=== PATIENT | female | born 1995 | race Native Hawaiian/Other Pacific Islander ===

== ENCOUNTER 2022-07-02 16:36 | Emergency (ER) | payer OTHER ==
[~2022-07-02] VITALS: Ht 160 cm; Wt 88.9 kg
[2022-07-02 16:52] VITALS: BP 145/87; TEMP 96.4
[2022-07-02 17:58] LABS: PLATELET COUNT 352 K/uL (152-353)
== END 2022-07-02 19:59 | disposition home or self-care (01) ==
LOC: ED 16:36
PROVIDERS: Family Medicine
DX: O20.0 Threatened abortion (principal)
CPT/HCPCS: 80053; 81002; 81015; 81025; 84702; 85027; 99282

== ENCOUNTER 2022-10-21 15:29 | Emergency (ER) | payer OTHER ==
[~2022-10-21] VITALS: Ht 160 cm; Wt 95.7 kg
[2022-10-21 15:30] VITALS: TEMP 99.1
[2022-10-21 17:13] LABS: PLATELET COUNT 319 K/uL (152-353)
[2022-10-21 17:21] LABS: POTASSIUM 3.2 mmol/L (3.6-5.2); SODIUM 140 mmol/L (136-145)
[2022-10-21 17:28] LABS: PARTIAL THROMBOPLASTIN TIME 22.3 SECONDS (24.5-33.6)
[2022-10-21 19:15] VITALS: BP 120/60
== END 2022-10-21 19:15 | disposition home or self-care (01) ==
LOC: ED 15:29
PROVIDERS: Family Medicine
DX: R07.89 Other chest pain (principal); Z3A.22 22 weeks gestation of pregnancy
CPT/HCPCS: 36415; 80053; 80307; 81002; 82550; 84484; 85027; 85379; 85610; 85730; 87502; 87651; 93005; 99283

== ENCOUNTER 2023-01-22 13:27 | Emergency (ER) | payer OTHER | END 2023-01-22 13:46 | disposition home or self-care (01) | LOC: ED 13:27 | DX: Z53.21 Procedure and treatment not carried out due to patient leaving prior to being seen by health care provider (principal) | CPT/HCPCS: 99281 ==